=== PATIENT | female | born 1965 | race Two or more races ===

== ENCOUNTER 2023-05-11 17:40 | Emergency (ER) | payer OTHER, BC ==
[2023-05-11] MEDS ORDERED: Cyclobenzaprine 10 MG Tab PO ONE (17:51)
[2023-05-11] MEDS ORDERED: predniSONE 20 MG Tab PO STA (17:51)
[2023-05-11] MEDS ORDERED: Lidocaine 5% 700 MG Patch TRDERM ONE (17:52)
[2023-05-11] MEDS ORDERED: Cyclobenzaprine 10 MG Tab PO PRN (18:23)
== END 2023-05-11 18:32 | disposition home or self-care (01) ==
LOC: CC.ED 17:40
DX: S33.5XXA Sprain of ligaments of lumbar spine, initial encounter (principal); W17.89XA Other fall from one level to another, initial encounter; Y92.89 Other specified places as the place of occurrence of the external cause; Y99.0 Civilian activity done for income or pay
CPT/HCPCS: 72100; 99283; A9270-GY; J7512